=== PATIENT | female | born 1950 | race Two or more races ===

== ENCOUNTER → 2020-07-10 | Outpatient (REF) | payer MEDICARE ==
[~2020-07-10] MED LIST: ALPHAGAN OS; COUM1TAB16; COUM1TAB16 PO; DIAMOX PO; DORZ2SOL17 OU; ERYTHROMYCIN OU; LIPI20TA PO; LUMIGAN OS; NORV5TAB PO; PILO4SOL OS; PILO4SOL6 OS; PRIN10TA PO; SIMV10TA2 PO; cosopt OU
== END ==
LOC: M LAB REF 09:31
PROVIDERS: ATTEND Physician Assistant
DX: C43.31 Malignant melanoma of nose (principal)

== ENCOUNTER → 2021-02-26 | Outpatient (REF) | payer MEDICARE ==
[~2021-02-26] MED LIST changes: +AMLO2.5T3 PO; +ATRO1OPD OS; +BACT800T5 PO; +Budesonide PO; +COSO1SOL3 OD; +LISI2.5T9 PO; +LISI5TAB11 PO; +LOMO2.5T PO; +LOPE2TAB12 PO; +ONDA-84 PO; +PANT40TA29 PO; +PRED10PA PO; +PRED20TA PO; +PROC10TA5 PO; +SIMV10TA21 PO; +TRUS1SOL OD; +WARF4TAB51 PO; +WARF4TAB52 PO
[2021-02-26 12:00] LABS: HEMOGLOBIN A1c 7.1 %
== END ==
LOC: M LAB REF 11:02
PROVIDERS: ATTEND Family Medicine
DX: R73.9 Hyperglycemia, unspecified (principal)

== ENCOUNTER 2021-04-01 08:51 | Inpatient (IN) | payer MEDICARE ==
[~2021-04-01] VITALS: Ht 165.1 cm; Wt 76.7 kg
[~2021-04-01 08:51] MED LIST changes: -Budesonide PO; -COSO1SOL3 OD; -LOMO2.5T PO; -LOPE2TAB12 PO
[2021-04-01] MEDS ORDERED: NS 1,000 ML IV ONE (11:55)
[2021-04-01 12:42] LABS: BASO % 0.5 % (0.0-1.0); EOS # 0.4 10^3/uL (0.0-0.5); EOS % 5.7 % (0.0-3.0); HEMATOCRIT 37.3 % (36.0-47.0); HEMOGLOBIN 11.6 g/dl (12.0-15.5); LYMPH # 0.9 10^3/uL (1.5-5.0); LYMPH % 12.2 % (24.0-44.0); MEAN CORPUSCULAR HEMOGLOBIN 29.1 pg (27.0-33.0); MEAN CORPUSCULAR HGB CONC 31.1 g/dl (32.0-36.5); MEAN CORPUSCULAR VOLUME 93.7 fl (80.0-96.0); MONO % 12.6 % (2.0-8.0); NEUTROPHILS # 5.3 10^3/uL (1.5-8.5); NEUTROPHILS % 68.6 % (36.0-66.0); PLATELET COUNT, AUTOMATED 398 10^3/uL (150-450); RED BLOOD COUNT 3.98 10^6/uL (4.00-5.40); WHITE BLOOD COUNT 7.7 10^3/uL (4.0-10.0)
[2021-04-01 12:53] LABS: CK-MB VALUE MASS < 1.0 NG/ML (<3.6); CPK CREATINE PHOSPHOKINASE 43 U/L (26-192); MB/CK RELATIVE INDEX 2.33 (< OR =4)
[2021-04-01 13:02] LABS: BLOOD UREA NITROGEN 22 MG/DL (7-18); CALCIUM LEVEL 8.7 MG/DL (8.8-10.2); CARBON DIOXIDE LEVEL 27 MEQ/L (21-32); CHLORIDE LEVEL 106 MEQ/L (98-107); CREATININE FOR GFR 1.52 MG/DL (0.55-1.30); GLOMERULAR FILTRATION RATE 35.8 (>39); GLUCOSE, FASTING 112 MG/DL (70-100); MAGNESIUM LEVEL 2.2 MG/DL (1.8-2.4); POTASSIUM SERUM 5.6 MEQ/L (3.5-5.1); SODIUM LEVEL 137 MEQ/L (136-145); THYROID STIMULATING HORMONE 0.992 uIU/ML (0.358-3.740)
[2021-04-01 13:03] LABS: INR 2.01; PROTHROMBIN TIME 23.2 SECONDS (12.7-14.5)
[2021-04-01 16:04] LABS: CK-MB VALUE MASS < 1.0 NG/ML (<3.6); CPK CREATINE PHOSPHOKINASE 20 U/L (26-192)
[2021-04-01] MEDS ORDERED: ISOVUE-370 76% 100ML VIAL As Ordered ONE (18:15)
[2021-04-01 18:18] LABS: C REACTIVE PROTEIN QUANTITATIV 9.64 MG/DL (0.00-0.30)
[2021-04-01] MEDS ORDERED: ONDANSETRON 4 MG ORAL DISINTEGRATING TAB PO PRN (18:55)
[2021-04-01] MEDS ORDERED: ACETAMINOPHEN TAB 650MG DOSE (2X325MG) PO PRN (18:55)
[2021-04-01] MEDS ORDERED: LOMOTIL 2.5MG/0.025MG TABLET PO PRN (18:55)
[2021-04-01] MEDS ORDERED: CALCIUM GLUCONATE 1,000 MG in D5W MINI-BAG PLUS 100 ML IV ONE (19:00)
[2021-04-01 19:08] LABS: ERYTHROCYTE SEDIMENTATION RATE 62 mm/hr (0-30)
[2021-04-01] MEDS ORDERED: AMLO2.5T3 PO (19:10)
[2021-04-01] MEDS ORDERED: HOME MED LIST COMPLETE! XX SCH (19:15)
[2021-04-01 20:28] LABS: ALBUMIN 2.3 GM/DL (3.2-5.2); ALT/SGPT 13 U/L (12-78); BILIRUBIN,DIRECT < 0.1 MG/DL (0.0-0.2); BILIRUBIN,TOTAL 0.6 MG/DL (0.2-1.0); FERRITIN 97 NG/ML (8-252); FOLATE 18.5 NG/ML; IRON (FE) 62 UG/DL (50-170); PERCENT SATURATION 24.2 % (13.2-45.0); TOTAL 25(OH) VITAMIN D 25.8 NG/ML (30.0-100.0); TOTAL IRON BINDING CAPACITY 256 UG/DL (250-450); TOTAL PROTEIN 6.5 GM/DL (6.4-8.2); VITAMIN B12 LEVEL 1429 PG/ML
[2021-04-01] MEDS ORDERED: COSO1SOL3 OD (21:39)
[2021-04-01 23:20] VITALS: BP 130/81
[2021-04-01 23:22] VITALS: BP 128/74
[2021-04-01 23:24] VITALS: BP 84/58
[2021-04-01] MEDS: SIMVASTATIN 10 MG TAB PO SCH (23:58)
[2021-04-01] MEDS: NS 1,000 ML IV SCH (23:58)
[2021-04-02] MEDS: WARFARIN SOD 1MG TAB PO SCH ×2 (00:39→18:43)
[2021-04-02 06:00] VITALS: BP_SYST 103; BP_SYST 131; BP_SYST 136; BP_DIAS 67; BP_DIAS 68
[2021-04-02 06:41] LABS: HEMATOCRIT 36.6 % (36.0-47.0); MEAN CORPUSCULAR HEMOGLOBIN 29.7 pg (27.0-33.0); MEAN CORPUSCULAR HGB CONC 30.1 g/dl (32.0-36.5); MEAN CORPUSCULAR VOLUME 98.9 fl (80.0-96.0); WHITE BLOOD COUNT 5.6 10^3/uL (4.0-10.0)
[2021-04-02 06:42] LABS: PLATELET COUNT, AUTOMATED 268 10^3/uL (150-450)
[2021-04-02 06:50] LABS: INR 2.46
[2021-04-02 07:16] LABS: CALCIUM LEVEL 8.2 MG/DL (8.8-10.2); CREATININE FOR GFR 1.09 MG/DL (0.55-1.30); GLOMERULAR FILTRATION RATE 52.5 (>39); MAGNESIUM LEVEL 2.1 MG/DL (1.8-2.4); POTASSIUM SERUM 4.4 MEQ/L (3.5-5.1)
[2021-04-02] MEDS: NS 1,000 ML IV SCH ×3 (07:49→20:21)
[2021-04-02] MEDS: CHOLESTYRAMINE 4 GM PWD PKT PO SCH ×3 (08:52→20:20)
[2021-04-02] MEDS ORDERED: DORZOLAMIDE 2% OPHTH SOLN 10 ML BTL OD SCH (09:00)
[2021-04-02] MEDS ORDERED: COSOPT OCUMETER PLUS 10ML (DORZOLAMIDE/TIMOLOL) OD SCH (09:00)
[2021-04-02] MEDS ORDERED: PREVNAR 13 VACCINE SYRINGE IM ONE (13:00)
[2021-04-02 14:00] VITALS: BP 149/77
[2021-04-02] MEDS: SIMVASTATIN 10 MG TAB PO SCH (20:20)
[2021-04-02] MEDS: COSOPT OCUMETER PLUS 10ML (DORZOLAMIDE/TIMOLOL) OD SCH (20:21)
[2021-04-02 22:00] VITALS: BP 136/64
[2021-04-02 22:21] VITALS: BP_SYST 109; BP_SYST 134; BP_SYST 135; BP_DIAS 56; BP_DIAS 65; BP_DIAS 67
[2021-04-03 05:45] VITALS: BP 115/63
[2021-04-03] MEDS: NS 1,000 ML IV SCH ×2 (06:08→16:04)
[2021-04-03 06:38] LABS: HEMOGLOBIN 9.8 g/dl (12.0-15.5); MEAN CORPUSCULAR HEMOGLOBIN 29.7 pg (27.0-33.0); MEAN CORPUSCULAR HGB CONC 31.6 g/dl (32.0-36.5); MEAN CORPUSCULAR VOLUME 93.9 fl (80.0-96.0); PLATELET COUNT, AUTOMATED 271 10^3/uL (150-450); WHITE BLOOD COUNT 5.7 10^3/uL (4.0-10.0)
[2021-04-03 06:52] LABS: BLOOD UREA NITROGEN 16 MG/DL (7-18); CALCIUM LEVEL 7.6 MG/DL (8.8-10.2); CARBON DIOXIDE LEVEL 24 MEQ/L (21-32); CHLORIDE LEVEL 112 MEQ/L (98-107); CREATININE FOR GFR 0.93 MG/DL (0.55-1.30); GLOMERULAR FILTRATION RATE > 60.0 (>39); GLUCOSE, FASTING 98 MG/DL (70-100); MAGNESIUM LEVEL 1.9 MG/DL (1.8-2.4); POTASSIUM SERUM 3.7 MEQ/L (3.5-5.1); SODIUM LEVEL 140 MEQ/L (136-145)
[2021-04-03 06:59] LABS: INR 3.07
[2021-04-03] MEDS: LOMOTIL 2.5MG/0.025MG TABLET PO SCH ×3 (07:53→21:31)
[2021-04-03] MEDS: COSOPT OCUMETER PLUS 10ML (DORZOLAMIDE/TIMOLOL) OD SCH ×2 (08:36→21:29)
[2021-04-03] MEDS: MIDODRINE 2.5 MG TAB PO SCH ×3 (08:36→16:04)
[2021-04-03] MEDS: lisinopriL 5 MG TAB PO SCH ×2 (09:00→09:11)
[2021-04-03] MEDS: CHOLESTYRAMINE 4 GM PWD PKT PO SCH ×2 (10:18→21:29)
[2021-04-03 10:52] VITALS: BP_SYST 119; BP_SYST 121; BP_SYST 125; BP_DIAS 58; BP_DIAS 60; BP_DIAS 61
[2021-04-03 14:00] VITALS: BP 128/60
[2021-04-03] MEDS: WARFARIN SOD 1MG TAB PO SCH (16:05)
[2021-04-03 20:00] VITALS: BP_SYST 138; BP_SYST 139; BP_DIAS 67; BP_DIAS 70; BP_DIAS 74
[2021-04-03] MEDS: SIMVASTATIN 10 MG TAB PO SCH (21:31)
[2021-04-03 22:00] VITALS: BP 138/67
[2021-04-04] VITALS (11 sets, daily range): BP systolic 112–154; BP diastolic 54–83
[2021-04-04] MEDS: NS 1,000 ML IV SCH (02:21)
[2021-04-04 06:59] LABS: INR 3.51; PROTHROMBIN TIME 35.5 SECONDS (12.7-14.5)
[2021-04-04 07:00] LABS: HEMATOCRIT 30.9 % (36.0-47.0); HEMOGLOBIN 9.6 g/dl (12.0-15.5); MEAN CORPUSCULAR HEMOGLOBIN 29.4 pg (27.0-33.0); MEAN CORPUSCULAR HGB CONC 31.1 g/dl (32.0-36.5); MEAN CORPUSCULAR VOLUME 94.5 fl (80.0-96.0); PLATELET COUNT, AUTOMATED 277 10^3/uL (150-450); RED BLOOD COUNT 3.27 10^6/uL (4.00-5.40); WHITE BLOOD COUNT 5.7 10^3/uL (4.0-10.0)
[2021-04-04 07:17] LABS: BLOOD UREA NITROGEN 13 MG/DL (7-18); CALCIUM LEVEL 7.6 MG/DL (8.8-10.2); CARBON DIOXIDE LEVEL 24 MEQ/L (21-32); CHLORIDE LEVEL 113 MEQ/L (98-107); CREATININE FOR GFR 0.86 MG/DL (0.55-1.30); GLOMERULAR FILTRATION RATE > 60.0 (>39); GLUCOSE, FASTING 85 MG/DL (70-100); MAGNESIUM LEVEL 1.7 MG/DL (1.8-2.4); POTASSIUM SERUM 3.8 MEQ/L (3.5-5.1); SODIUM LEVEL 140 MEQ/L (136-145)
[2021-04-04] MEDS: LOMOTIL 2.5MG/0.025MG TABLET PO SCH ×3 (08:02→20:06)
[2021-04-04] MEDS: MIDODRINE 2.5 MG TAB PO SCH ×3 (08:02→15:30)
[2021-04-04] MEDS: COSOPT OCUMETER PLUS 10ML (DORZOLAMIDE/TIMOLOL) OD SCH ×2 (08:03→20:06)
[2021-04-04] MEDS: lisinopriL 5 MG TAB PO SCH (08:03)
[2021-04-04] MEDS ORDERED: FLEET ENEMA PR ONE (09:45)
[2021-04-04] MEDS: CHOLESTYRAMINE 4 GM PWD PKT PO SCH (10:28)
[2021-04-04] MEDS ORDERED: MIDAZOLAM INJ 2MG/2ML VIAL (J2250 PER 1MG) As Ordered ONE (12:53)
[2021-04-04] MEDS ORDERED: LIDOCAINE 2% 100MG/5ML SDV (FOR ANES.) As Ordered ONE (12:53)
[2021-04-04] MEDS ORDERED: propofoL 200 MG/20 ML VIAL As Ordered ONE (12:53)
[2021-04-04] MEDS ORDERED: ePHEDrine SULFATE 25 MG/5 ML(5MG/ML) SYRINGE As Ordered ONE (13:09)
[2021-04-04 14:46] LABS: CLOSTRIDIUM DIFFICILE PCR NEGATIVE (NEGATIVE)
[2021-04-04] MEDS: BUDESONIDE EC 3 MG CAP (ENTOCORT EC) PO SCH (15:30)
[2021-04-04] MEDS: SIMVASTATIN 10 MG TAB PO SCH (20:05)
[2021-04-05 02:00] VITALS: BP 113/54
[2021-04-05 06:00] VITALS: BP_SYST 121; BP_SYST 139; BP_SYST 140; BP_DIAS 62; BP_DIAS 72
[2021-04-05 06:38] LABS: HEMATOCRIT 34.3 % (36.0-47.0); HEMOGLOBIN 10.7 g/dl (12.0-15.5); MEAN CORPUSCULAR HEMOGLOBIN 29.4 pg (27.0-33.0); MEAN CORPUSCULAR HGB CONC 31.2 g/dl (32.0-36.5); MEAN CORPUSCULAR VOLUME 94.2 fl (80.0-96.0); PLATELET COUNT, AUTOMATED 306 10^3/uL (150-450); RED BLOOD COUNT 3.64 10^6/uL (4.00-5.40); WHITE BLOOD COUNT 8.1 10^3/uL (4.0-10.0)
[2021-04-05 06:53] LABS: INR 3.54; PROTHROMBIN TIME 35.7 SECONDS (12.7-14.5)
[2021-04-05 07:07] LABS: BLOOD UREA NITROGEN 15 MG/DL (7-18); CALCIUM LEVEL 7.9 MG/DL (8.8-10.2); CARBON DIOXIDE LEVEL 23 MEQ/L (21-32); CHLORIDE LEVEL 113 MEQ/L (98-107); CREATININE FOR GFR 0.93 MG/DL (0.55-1.30); GLOMERULAR FILTRATION RATE > 60.0 (>39); GLUCOSE, FASTING 86 MG/DL (70-100); MAGNESIUM LEVEL 1.8 MG/DL (1.8-2.4); POTASSIUM SERUM 3.9 MEQ/L (3.5-5.1); SODIUM LEVEL 141 MEQ/L (136-145)
[2021-04-05] MEDS: MIDODRINE 5 MG TAB PO SCH ×2 (08:00→12:00)
[2021-04-05] MEDS: BUDESONIDE EC 3 MG CAP (ENTOCORT EC) PO SCH (08:37)
[2021-04-05] MEDS: LOMOTIL 2.5MG/0.025MG TABLET PO SCH ×2 (08:37→15:06)
[2021-04-05] MEDS: COSOPT OCUMETER PLUS 10ML (DORZOLAMIDE/TIMOLOL) OD SCH (08:38)
[2021-04-05 08:40] VITALS: BP 129/75
[2021-04-05 10:00] VITALS: BP 123/69
[2021-04-05 10:40] VITALS: BP_SYST 120; BP_SYST 142; BP_SYST 148; BP_DIAS 62; BP_DIAS 74; BP_DIAS 78
[2021-04-05 12:10] VITALS: BP 122/64
[2021-04-05 12:33] LABS: BASO % 0.3 % (0.0-1.0); EOS # 0.1 10^3/uL (0.0-0.5); EOS % 0.9 % (0.0-3.0); HEMATOCRIT 34.2 % (36.0-47.0); LYMPH # 0.4 10^3/uL (1.5-5.0); LYMPH % 5.3 % (24.0-44.0); MEAN CORPUSCULAR HEMOGLOBIN 29.4 pg (27.0-33.0); MEAN CORPUSCULAR HGB CONC 32.2 g/dl (32.0-36.5); MEAN CORPUSCULAR VOLUME 91.4 fl (80.0-96.0); MONO # 0.5 10^3/uL (0.0-0.8); MONO % 7.4 % (2.0-8.0); NEUTROPHILS # 5.7 10^3/uL (1.5-8.5); NEUTROPHILS % 85.6 % (36.0-66.0); PLATELET COUNT, AUTOMATED 354 10^3/uL (150-450); RED BLOOD COUNT 3.74 10^6/uL (4.00-5.40); WHITE BLOOD COUNT 6.7 10^3/uL (4.0-10.0)
[2021-04-05 12:55] LABS: CK-MB VALUE MASS 1.7 NG/ML (<3.6); MB/CK RELATIVE INDEX 5.15 (< OR =4)
[2021-04-05] MEDS ORDERED: PHYTONADIONE 5 MG TAB PO ONE (13:00)
[2021-04-05 13:03] LABS: ALT/SGPT 10 U/L (12-78); BILIRUBIN,TOTAL 0.2 MG/DL (0.2-1.0); BLOOD UREA NITROGEN 18 MG/DL (7-18); CARBON DIOXIDE LEVEL 22 MEQ/L (21-32); CHLORIDE LEVEL 113 MEQ/L (98-107); CREATININE FOR GFR 0.94 MG/DL (0.55-1.30); GLOMERULAR FILTRATION RATE > 60.0 (>39); GLUCOSE, FASTING 140 MG/DL (70-100); MAGNESIUM LEVEL 1.8 MG/DL (1.8-2.4); POTASSIUM SERUM 4.1 MEQ/L (3.5-5.1); SODIUM LEVEL 141 MEQ/L (136-145)
[2021-04-05] MEDS ORDERED: Budesonide PO (13:54)
[2021-04-05] MEDS ORDERED: FLUBLOK(EGG FREE)(QUAD)INFLUENZA VACC 0.5ML SYRINGE 18YRS & OLDER IM ONE (15:00)
[2021-04-05] MEDS ORDERED: LOPE2TAB12 PO (18:06)
[2021-04-05] MEDS ORDERED: LOMO2.5T PO (18:24)
== END 2021-04-05 18:17 | disposition home or self-care (01) | DRG 395 ==
LOC: M ED 08:51 → M ED INP 08:52 → M MSPAV 22:42 → OBSVTOIN 04-04 11:08
PROVIDERS: ADMIT Internal Medicine; ATTEND Family Medicine
PROC: 0DBL8ZX Excision of Transverse Colon, Via Natural or Artificial Opening Endoscopic, Diagnostic (ICD-10-PCS; principal; 2021-04-04 13:00)
DX: K52.1 Toxic gastroenteritis and colitis (principal); I95.1 Orthostatic hypotension; I12.9 Hypertensive chronic kidney disease with stage 1 through stage 4 chronic kidney disease, or unspecified chronic kidney disease; E78.5 Hyperlipidemia, unspecified; E87.5 Hyperkalemia; N18.30 Chronic kidney disease, stage 3 unspecified; K58.0 Irritable bowel syndrome with diarrhea; Z85.820 Personal history of malignant melanoma of skin; Z92.21 Personal history of antineoplastic chemotherapy; Z86.73 Personal history of transient ischemic attack (TIA), and cerebral infarction without residual deficits; Z98.41 Cataract extraction status, right eye; Z98.42 Cataract extraction status, left eye; Z79.01 Long term (current) use of anticoagulants; Z79.899 Other long term (current) drug therapy

== ENCOUNTER → 2021-05-24 | Outpatient (CLI) | payer MEDICARE ==
[~2021-05-24] MED LIST changes: +Budesonide PO; +COSO1SOL3 OD; +DORZ2SOL4 OD; +LOMO2.5T PO; +LOPE2TAB12 PO; +MESA1.2T PO
== END ==
LOC: M LABSMTC 10:05
PROVIDERS: ATTEND Anesthesiology
DX: Z01.812 Encounter for preprocedural laboratory examination (principal); Z20.822 Contact with and (suspected) exposure to COVID-19

== ENCOUNTER 2021-05-29 12:52 | Inpatient (IN) | payer MEDICARE ==
[~2021-05-29] VITALS: Ht 162.6 cm; Wt 75.2 kg
[~2021-05-29 12:52] MED LIST changes: +**UNRESOLVED NON-FORMULARY MED ORDER XX SCH; +LR 1,000 ML IV ONE; +ceFAZolin SOD 2 GM in IV 1 EA IV ONE
[2021-05-29] MEDS ORDERED: ONDANSETRON 4MG/2ML VIAL As Ordered ONE (13:13)
[2021-05-29] MEDS ORDERED: LIDOCAINE 2% 100MG/5ML SDV (FOR ANES.) As Ordered ONE (13:13)
[2021-05-29] MEDS ORDERED: dexameTHASONE 4 MG/ML 1ML VIAL (J1100 PER 1MG) As Ordered ONE (13:13)
[2021-05-29] MEDS ORDERED: fentaNYL 100 MCG/2 ML INJECTION As Ordered ONE (13:14)
[2021-05-29] MEDS ORDERED: MIDAZOLAM INJ 2MG/2ML VIAL (J2250 PER 1MG) As Ordered ONE (13:14)
[2021-05-29] MEDS ORDERED: propofoL 500 MG/50 ML VIAL As Ordered ONE (13:14)
[2021-05-29 13:35] LABS: INR 1.07; PROTHROMBIN TIME 14.3 SECONDS (12.7-14.5)
[2021-05-29] MEDS ORDERED: MUPIROCIN 2% OINT 22 GM TUBE As Ordered ONE (14:30)
[2021-05-29] MEDS ORDERED: VANCOMYCIN 1000MG/20ML VIAL As Ordered ONE (14:31)
[2021-05-29] MEDS ORDERED: ISOVUE-300 61% 50ML VIAL As Ordered ONE (14:31)
[2021-05-29] MEDS ORDERED: LIDOCAINE 1% SDV 30ML VIAL As Ordered ONE (14:31)
[2021-05-29] MEDS ORDERED: PHENYLephrine 500MCG 5ML (100MCG/ML) SYRINGE As Ordered ONE (16:03)
[2021-05-29] MEDS ORDERED: ePHEDrine SULFATE 25 MG/5 ML(5MG/ML) SYRINGE As Ordered ONE (16:03)
[2021-05-29] MEDS ORDERED: propofoL 200 MG/20 ML VIAL As Ordered ONE (16:43)
[2021-05-29] MEDS ORDERED: ONDANSETRON 4MG/2ML VIAL IV PRN (18:20)
[2021-05-29] MEDS ORDERED: fentaNYL 100 MCG/2 ML INJECTION IV PRN (18:20)
[2021-05-29] MEDS ORDERED: oxyCODONE 5MG TAB PO PRN (18:20)
[2021-05-29] MEDS ORDERED: LR 1,000 ML IV SCH (18:20)
[2021-05-29] MEDS ORDERED: LABETALOL 100MG/20ML VIAL IV SCH (18:30)
[2021-05-29] MEDS ORDERED: ACETAMINOPHEN TAB 650MG DOSE (2X325MG) PO PRN (18:30)
[2021-05-29 21:00] VITALS: BP 160/78
[2021-05-29] MEDS ORDERED: SIMVASTATIN 10 MG TAB PO SCH (21:00)
[2021-05-29] MEDS ORDERED: DORZOLAMIDE 2% OPHTH SOLN 10 ML BTL OD SCH (21:00)
[2021-05-29] MEDS ORDERED: COSOPT OCUMETER PLUS 10ML (DORZOLAMIDE/TIMOLOL) OD SCH (21:00)
[2021-05-29] MEDS ORDERED: WARFARIN SOD 1MG TAB PO SCH (21:00)
[2021-05-29] MEDS: ASCORBIC ACID 250 MG TAB PO SCH (21:15)
[2021-05-29 22:00] VITALS: BP 168/90
[2021-05-29 23:00] VITALS: BP 168/92
[2021-05-30] VITALS: BP 174/110
[2021-05-30] MEDS ORDERED: amLODIPine 5 MG TAB PO ONE (00:15)
[2021-05-30 00:20] VITALS: BP 174/110
[2021-05-30 01:00] VITALS: BP 182/102
[2021-05-30] MEDS ORDERED: ALPRAZolam 0.25 MG TAB PO ONE (01:15)
[2021-05-30 04:00] VITALS: BP 158/86
[2021-05-30] MEDS ORDERED: DORZOLAMIDE 2% OPHTH SOLN 10 ML BTL OD SCH (09:00)
[2021-05-30] MEDS: ASCORBIC ACID 250 MG TAB PO SCH (09:27)
[2021-05-30] MEDS ORDERED: ACET1TAB55 PO (09:54)
[2021-05-30] MEDS ORDERED: ASCO250T20 PO (09:54)
== END 2021-05-30 12:06 | disposition home or self-care (01) | DRG 244 ==
LOC: M SDC 12:52 → M PCU 20:10
PROVIDERS: ADMIT Internal Medicine Cardiovascular Disease; ATTEND Internal Medicine Cardiovascular Disease
PROC: 02H63JZ Insertion of Pacemaker Lead into Right Atrium, Percutaneous Approach (ICD-10-PCS; 2021-05-29)
PROC: 02HK3JZ Insertion of Pacemaker Lead into Right Ventricle, Percutaneous Approach (ICD-10-PCS; 2021-05-29)
PROC: 0JH606Z Insertion of Pacemaker, Dual Chamber into Chest Subcutaneous Tissue and Fascia, Open Approach (ICD-10-PCS; principal; 2021-05-29 14:30)
DX: I45.2 Bifascicular block (principal); I49.5 Sick sinus syndrome; I10 Essential (primary) hypertension; H40.9 Unspecified glaucoma; E78.5 Hyperlipidemia, unspecified; R55 Syncope and collapse; Z79.01 Long term (current) use of anticoagulants; Z79.899 Other long term (current) drug therapy; Z86.73 Personal history of transient ischemic attack (TIA), and cerebral infarction without residual deficits; Z85.820 Personal history of malignant melanoma of skin

== ENCOUNTER → 2021-07-31 | Outpatient (CLI) | payer MEDICARE ==
[~2021-07-31] MED LIST changes: -**UNRESOLVED NON-FORMULARY MED ORDER XX SCH; +ACET1TAB55 PO; +ALPR0.5T3 PO; +ASCO250T20 PO; +HYDR12CA PO; -LR 1,000 ML IV ONE; -ceFAZolin SOD 2 GM in IV 1 EA IV ONE
== END ==
LOC: M LABSMTC 09:59
PROVIDERS: ATTEND Anesthesiology
DX: Z01.818 Encounter for other preprocedural examination (principal); Z11.52 Encounter for screening for COVID-19

== ENCOUNTER 2021-08-05 09:40 | Day surgery (SDC) | payer MEDICARE ==
[~2021-08-05] VITALS: Ht 165.1 cm; Wt 74.4 kg
[~2021-08-05 09:40] MED LIST changes: +NS 1,000 ML IV ONE
[2021-08-05] MEDS ORDERED: MIDAZOLAM INJ 2MG/2ML VIAL (J2250 PER 1MG) As Ordered ONE (11:06)
[2021-08-05] MEDS ORDERED: ePHEDrine SULFATE 25 MG/5 ML(5MG/ML) SYRINGE As Ordered ONE (11:40)
[2021-08-05] MEDS ORDERED: propofoL 200 MG/20 ML VIAL As Ordered ONE (11:40)
[2021-08-05] MEDS ORDERED: LIDOCAINE 2% 100MG/5ML SDV (FOR ANES.) As Ordered ONE (11:40)
[2021-08-05 12:20] VITALS: BP 196/99
== END 2021-08-05 12:32 | disposition home or self-care (01) ==
LOC: M OPP 09:40
PROVIDERS: ATTEND Internal Medicine Gastroenterology
DX: K52.9 Noninfective gastroenteritis and colitis, unspecified (principal); K51.90 Ulcerative colitis, unspecified, without complications; K57.30 Diverticulosis of large intestine without perforation or abscess without bleeding; K64.8 Other hemorrhoids; C43.9 Malignant melanoma of skin, unspecified; Z79.01 Long term (current) use of anticoagulants; Z79.02 Long term (current) use of antithrombotics/antiplatelets; Z79.899 Other long term (current) drug therapy; Z95.0 Presence of cardiac pacemaker; Z80.0 Family history of malignant neoplasm of digestive organs; Z80.42 Family history of malignant neoplasm of prostate; Z86.73 Personal history of transient ischemic attack (TIA), and cerebral infarction without residual deficits
CPT/HCPCS: 45380; 88305; J2250

== ENCOUNTER → 2022-04-17 | Outpatient (CLI) | payer MEDICARE ==
[~2022-04-17] MED LIST changes: +ISOVUE-370 76% 100ML VIAL As Ordered ONE; -NS 1,000 ML IV ONE
== END ==
LOC: M RAD 10:02
PROVIDERS: ATTEND Internal Medicine Hematology & Oncology
DX: R91.8 Other nonspecific abnormal finding of lung field (principal)
CPT/HCPCS: 71260; Q9967

== ENCOUNTER → 2022-10-12 | Outpatient (REF) | payer MEDICARE ==
[~2022-10-12] MED LIST changes: -ATRO1OPD OS; +ATRO2DRO4 OS; -COSO1SOL3 OD; +DORZ10DR10 OD; -ISOVUE-370 76% 100ML VIAL As Ordered ONE
== END ==
LOC: M SFHCDERM 17:37
PROVIDERS: ATTEND Physician Assistant
DX: L57.0 Actinic keratosis (principal)

== ENCOUNTER → 2022-11-02 | Outpatient (REF) | payer MEDICARE ==
[2022-11-02 11:37] LABS: CHOLESTEROL RISK RATIO 3.04 (<5); HDL CHOLESTEROL 58.8 MG/DL (>40); LDL CHOLESTEROL 95.4 MG/DL (<100); NON-HDL-C 120.2 MG/DL
== END ==
LOC: M LAB REF 10:46
PROVIDERS: ATTEND Family Medicine
DX: Z00.00 Encounter for general adult medical examination without abnormal findings (principal); E78.00 Pure hypercholesterolemia, unspecified

== ENCOUNTER → 2023-10-25 | Outpatient (REF) | payer MEDICARE ==
[~2023-10-25] MED LIST changes: +PRED1SUS2 OD
== END ==
LOC: M SFHCDERM 18:12
PROVIDERS: ATTEND Physician Assistant
DX: D04.39 Carcinoma in situ of skin of other parts of face (principal)

== ENCOUNTER → 2024-10-25 | Outpatient (CLI) | payer OTHER, MEDICARE ==
[~2024-10-25] MED LIST changes: +HYDR12.510 PO; -HYDR12CA PO
== END ==
LOC: M SOG 06:54
PROVIDERS: ATTEND Physician Assistant
DX: M79.642 Pain in left hand (principal)